=== PATIENT | female | born 1995 | race Hispanic/Latino ===

== ENCOUNTER 2018-09-26 03:49 | Observation (INO) | payer SELFPAY ==
[2018-09-26] MEDS ORDERED: ONDANSETRON 4 MG/2 ML VIAL ONE ×2 (04:17→11:16)
[2018-09-26] MEDS ORDERED: MAGNE/ALUM HYDROXD 30 ML UCUP ONE (04:17)
[2018-09-26] MEDS ORDERED: LIDOCAINE VISCOUS 2% SOLN 15 ML UDC ONE (04:17)
[2018-09-26 04:42] LABS: Absolute Lymphocytes (CBC) 2.8 K/uL (0.7-4.9); Absolute Monocytes 0.6 K/uL (0.1-1.3); Basophils % 0.3 % (0-1.3); Hematocrit 38.4 % (36.0-45.0); Lymphocytes % 36.7 % (15.3-44.8); MPV 8.3 fL (7.6-11.3); Monocytes % 8.2 % (3.3-12.3); RBC Red Blood Cell Count 4.57 M/uL (3.86-4.86)
[2018-09-26 04:52] LABS: ALT/SGPT 25 U/L (12-78); AST/SGOT 29 U/L (15-37); Albumin 3.7 g/dL (3.4-5.0); Alkaline Phosphatase 71 U/L (45-117); BUN Blood Urea Nitrogen 21 mg/dL (7-18); Bicarbonate 30 mmol/L (21-32); Bilirubin Direct 0.1 mg/dL (0-0.2); Bilirubin Total 0.2 mg/dL (0.2-1.0); Glucose Level 102 mg/dL (74-106); Lipase 126 U/L (73-393); Potassium 3.7 mmol/L (3.5-5.1); Protein, Total 7.7 g/dL (6.4-8.2); Sodium Level 141 mmol/L (136-145)
[2018-09-26 05:46] LABS: Urine Bacteria <20 /HPF (<20); Urine Culture Reflex Order NOT NEEDED; Urine RBC <5 /HPF (NONE SEEN)
[2018-09-26] MEDS ORDERED: MEPERIDINE HCL 25 MG/0.5 ML ONE (06:04)
--- NOTE | 2018-09-26 07:56 | EDPHYS ---
Physician Documentation [facility] Name: Jennifer Cadena Age: 23 yrs Sex: Female : 1995 Arrival Date: 09/26/2018 Time: 03:50 Bed 6 Private MD: ED Physician Diego Thapa HPI: 09/26 03:59 This 23 yrs old Female presents to ER via Unassigned with complaints of rn Abdominal Pain, Nausea, Chest Pain. 03:59 This 23 yrs old Female presents to ER via Unassigned with complaints of rn Abdominal Pain, Nausea. 03:59 The patient presents to the emergency department with nausea, vomiting, abdominal pain, rn of the epigastric area, described as achy, and does not radiate. Onset: The symptoms/episode began/occurred just prior to arrival. Possible causes: unknown. The symptoms are aggravated by movement, pressure, The symptoms are alleviated by nothing. Severity of symptoms: At their worst the symptoms were moderate in the emergency department the symptoms are unchanged. The patient has experienced a previous episode. 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 No diarrhea or fever. . 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 - Family history:: not pertinent. - Social history:: Smoking status: Patient/guardian denies using tobacco. - Ebola Screening: : No symptoms or risks identified at this time. - Hospitalizations: : No recent hospitalization is reported. ROS: 04:01 Constitutional: Negative for fever, chills, and weight loss, Eyes: Negative for injury, rn pain, redness, and discharge, Neck: Negative for injury, pain, and swelling, Cardiovascular: Negative for palpitations, and edema, Respiratory: Negative for shortness of breath, cough, wheezing, and pleuritic chest pain, Abdomen/GI: + abd pain/nausea/vomiting, negative for diarrhea MS/Extremity: Negative for injury and deformity, Skin: Negative for injury, rash, and discoloration, Neuro: Negative for headache, weakness, numbness, tingling, and seizure. Exam: 04:01 Constitutional: This is a well developed, well nourished patient who is awake, alert, rn appears uncomfortable Head/Face: Normocephalic, atraumatic. Eyes: Pupils equal round and reactive to light, extra-ocular motions intact. Lids and lashes normal. Conjunctiva and sclera are non-icteric and not injected. Cornea within normal limits. Periorbital areas with no swelling, redness, or edema. ENT: MMM Abdomen/GI: soft, + epigastric abd tenderness, neg bhagat, no masses Skin: Warm, dry with normal turgor. Normal color with no rashes, no lesions, and no evidence of cellulitis. MS/ Extremity: Pulses equal, no cyanosis. Neurovascular intact. Full, normal range of motion. Equal circumference. Neuro: Awake and alert, GCS 15, oriented to person, place, time, and situation. Cranial nerves II-XII grossly intact. Motor strength 5/5 in all extremities. Sensory grossly intact. Cerebellar exam normal. Normal gait. Vital Signs: 04:00 BP 125 / 76; Pulse 92; Resp 18; Temp 98.5(O); Pulse Ox 100% on R/A; Weight 67.13 kg; lp1 Height 5 ft. 4 in. (162.56 cm); Pain 10/10; 05:36 BP 116 / 70; Pulse 90; Resp 18; Pulse Ox 100% on R/A; tl2 06:29 BP 110 / 65; Pulse 66; Resp 18; Pulse Ox 97% on R/A; tl2 07:47 BP 118 / 60; Pulse 84; Resp 18; Pulse Ox 100% ; sv 09:06 BP 119 / 64; Pulse 92; Resp 16; Pulse Ox 100% ; sv 10:25 BP 112 / 47; Pulse 86; Resp 17; Pulse Ox 100% on R/A; tw2 04:00 Body Mass Index 25.40 (67.13 kg, 162.56 cm) lp1 MDM: 03:53 Patient medically screened. rn 09/26 03:58 Order name: Basic Metabolic Panel; Complete Time: 05:50 rn 09/26 03:58 Order name: CBC with Diff; Complete Time: 05:50 rn 09/26 03:58 Order name: Hepatic Function; Complete Time: 05:50 rn 09/26 03:58 Order name: Lipase; Complete Time: 05:50 rn 09/26 04:01 Order name: Urine Microscopic Only; Complete Time: 05:50 rn 09/26 09:36 Order name: Urine Dipstick--Ancillary (enter results) bd 09/26 03:58 Order name: CT Abd/Pelvis - W/Contrast rn 09/26 07:11 Order name: US Abdomen Limited rn 09/26 09:36 Order name: Urine --Ancillary (enter results) bd 09/26 10:46 Order name: Urine --Ancillary EDMS 09/26 10:46 Order name: Urine Dipstick-Ancillary EDTN 09/26 03:58 Order name: IV Saline Lock; Complete Time: 04:16 rn 09/26 03:58 Order name: Labs collected and sent; Complete Time: 04:16 rn 09/26 04:01 Order name: Urine Test (obtain specimen); Complete Time: 04:16 rn 09/26 04:01 Order name: Urine Dipstick-Ancillary (obtain specimen); Complete Time: 04:16 rn Administered Medications: 04:16 Drug: Zofran 4 mg Route: IVP; Site: right antecubital; lp1 05:37 Follow up: Response: Nausea is decreased lp1 04:27 Drug: GI Cocktail without - (Maalox Suspension 30 ml, Lidocaine Liquid 2 % 15 lp1 ml) Route: PO; 05:37 Follow up: Response: Pain is unchanged, physician notified lp1 05:57 Drug: Demerol 25 mg Route: IVP; Site: right antecubital; tl2 06:29 Follow up: Response: Pain is decreased lp1 08:58 Drug: Zosyn 3.375 grams Route: IVPB; Infused Over: 60 mins; Site: right antecubital; sv 08:58 Drug: Pepcid 20 mg Route: IVP; Site: right antecubital; sv 08:58 Drug: NS 0.9% 1000 ml Route: IV; Rate: 1 bolus; Site: right antecubital; sv 08:58 Drug: NS 0.9% 1000 ml Route: IV; Rate: 125 ml/hr; Site: right antecubital; sv Disposition: 09/26/18 07:56 Hospitalization ordered by Matt Mccollum for Observation. Preliminary diagnosis are Abdominal tenderness, Cholecystitis, Cholelithiasis. - Bed requested for Operating Room. - Status is Observation. iw - Condition is Stable. - Problem is new. - Symptoms have improved. UTI on Admission? No Signatures: Dispatcher [employer] EDVerónica Reyes, RN RN Diego Peguero MD MD cha Williams, Irene, RN RN iw Ludwig Lincoln MD MD rn Pena, Laura, RN RN lp1 Candice Matthews RN RN tl2 Corrections: (The following items were deleted from the chart) 12:01 07:56 Hospitalization Ordered by Matt Mccollum MD for Observation. Preliminary diagnosis iw is Abdominal tenderness; Cholecystitis; Cholelithiasis. Bed requested for Telemetry/MedSurg (observation). Status is Observation. Condition is Stable. Problem is new. Symptoms have improved. UTI on Admission? No. [facility] 12:01 12:01 09/26/2018 07:56 Hospitalization Ordered by Matt Mccollum MD for Observation. iw Preliminary diagnosis is Abdominal tenderness; Cholecystitis; Cholelithiasis. Bed requested for Operating Room. Status is Observation. Condition is Stable. Problem is new. Symptoms have improved. UTI on Admission? No. iw
--- NOTE | 2018-09-26 07:56 | ER ---
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 Transition of care: patient was not received from another setting of care. Onset of symptoms was September 26, 2018 at 03:30. Risk Assessment: Do you want to hurt yourself or someone else? Patient reports no desire to harm self or others. Initial Sepsis Screen: Does the patient meet any 2 criteria? No. Patient's initial sepsis screen is negative. Does the patient have a suspected source of infection? No. Patient's initial sepsis screen is negative. Care prior to arrival: None. 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 - Family history:: not pertinent. - Social history:: Smoking status: Patient/guardian denies using tobacco. - Ebola Screening: : No symptoms or risks identified at this time. - Hospitalizations: : No recent hospitalization is reported. Screenin:02 Abuse screen: Denies threats or abuse. Denies injuries from another. Nutritional lp1 screening: No deficits noted. Tuberculosis screening: No symptoms or risk factors identified. Fall Risk None identified. Assessment: 04:01 General: Appears uncomfortable, Behavior is crying. Pain: Complains of pain in lp1 epigastric area, right upper quadrant and left upper quadrant Pain currently is 10 out of 10 on a pain scale. Noted to be crying, grimacing, Also complains of nausea. Neuro: Level of Consciousness is awake, alert, obeys commands, Oriented to person, place, time, situation. Cardiovascular: Patient's skin is warm and dry. Respiratory: Respiratory effort is even, unlabored. GI: Abdomen is non-distended, Bowel sounds present X 4 quads. Abdomen is tender to palpation in epigastric area Reports nausea, vomiting. : No signs and/or symptoms were reported regarding the genitourinary system. EENT: No signs and/or symptoms were reported regarding the EENT system. Derm: Skin is pink, warm \T\ dry. Musculoskeletal: Circulation, motion, and sensation intact. 04:50 Reassessment: CT notified of patient completing oral contrast at this time. lp1 05:30 Reassessment: Patient states continued epigastric pain; Provider notified. lp1 06:47 Reassessment: Patient returned from CT. lp1 08:10 Reassessment: Patient appears in no apparent distress at this time. No changes from tw2 previously documented assessment. Patient and/or family updated on plan of care and expected duration. Pain level reassessed. Patient is alert, oriented x 3, equal unlabored respirations, skin warm/dry/pink. 09:10 Reassessment: Patient appears in no apparent distress at this time. No changes from tw2 previously documented assessment. Patient and/or family updated on plan of care and expected duration. Pain level reassessed. Patient is alert, oriented x 3, equal unlabored respirations, skin warm/dry/pink. 10:25 Reassessment: Patient appears in no apparent distress at this time. No changes from tw2 previously documented assessment. Patient and/or family updated on plan of care and expected duration. Pain level reassessed. Patient is alert, oriented x 3, equal unlabored respirations, skin warm/dry/pink. Vital Signs: 04:00 BP 125 / 76; Pulse 92; Resp 18; Temp 98.5(O); Pulse Ox 100% on R/A; Weight 67.13 kg; lp1 Height 5 ft. 4 in. (162.56 cm); Pain 10/10; 05:36 BP 116 / 70; Pulse 90; Resp 18; Pulse Ox 100% on R/A; tl2 06:29 BP 110 / 65; Pulse 66; Resp 18; Pulse Ox 97% on R/A; tl2 07:47 BP 118 / 60; Pulse 84; Resp 18; Pulse Ox 100% ; sv 09:06 BP 119 / 64; Pulse 92; Resp 16; Pulse Ox 100% ; sv 10:25 BP 112 / 47; Pulse 86; Resp 17; Pulse Ox 100% on R/A; tw2 04:00 Body Mass Index 25.40 (67.13 kg, 162.56 cm) lp1 ED Course: 03:50 Patient arrived in ED. do 03:53 Ludwig Lincoln MD is Attending Physician. rn 04:00 Triage completed. lp1 04:01 Arm band placed on left wrist. lp1 04:03 Mayela Soto, RN is Primary Nurse. lp1 04:03 Patient has correct armband on for positive identification. Placed in gown. Pulse ox lp1 on. NIBP on. 04:10 Inserted saline lock: 20 gauge in right antecubital area, using aseptic technique. lp1 Blood collected. 06:[address] via wheelchair. lp1 06:42 CT completed. Patient tolerated procedure well. Patient moved back from CT. nj 06:54 CT Abd/Pelvis - W/Contrast In Process Unspecified. EDMS 07:09 Primary Nurse role handed off by Mayela Soto RN tw2 07:09 Rosi Tinajero, JUAREZ is Primary Nurse. tw2 07:42 US Abdomen Limited In Process Unspecified. EDMS 07:44 Ultrasound completed. Patient tolerated well. aa4 07:47 Attending Physician role handed off by Ludwig Lincoln MD renee 07:47 Diego Thapa MD is Attending Physician. renee 07:51 Matt Mccollum MD is Hospitalizing Provider. renee 09:05 Primary Nurse role handed off by Rosi Tinajero RN sv 09:05 Verónica Lujan RN is Primary Nurse. sv 12:00 No provider procedures requiring assistance completed. Patient admitted, IV remains in sv place. intact. Administered Medications: 04:16 Drug: Zofran 4 mg Route: IVP; Site: right antecubital; lp1 05:37 Follow up: Response: Nausea is decreased lp1 04:27 Drug: GI Cocktail without - (Maalox Suspension 30 ml, Lidocaine Liquid 2 % 15 lp1 ml) Route: PO; 05:37 Follow up: Response: Pain is unchanged, physician notified lp1 05:57 Drug: Demerol 25 mg Route: IVP; Site: right antecubital; tl2 06:29 Follow up: Response: Pain is decreased lp1 08:58 Drug: Zosyn 3.375 grams Route: IVPB; Infused Over: 60 mins; Site: right antecubital; sv 08:58 Drug: Pepcid 20 mg Route: IVP; Site: right antecubital; sv 08:58 Drug: NS 0.9% 1000 ml Route: IV; Rate: 1 bolus; Site: right antecubital; sv 08:58 Drug: NS 0.9% 1000 ml Route: IV; Rate: 125 ml/hr; Site: right antecubital; sv Outcome: 07:56 Decision to Hospitalize by Provider. renee 12:00 Admitted to OR accompanied by nurse, via wheelchair, with chart. sv 12:00 Condition: stable 12:00 Instructed on the need for admit. 12:01 Patient left the ED. iw Signatures: Dispatcher [employer] Verónica Swanson RN RN Diego Peguero MD MD cha Williams, Irene RN RN Sole Kebede Roman, MD MD rn Pena, Laura, RN RN lp1 Renetta Parekh Tara, RN RN tw2 Candice Matthews RN RN tl2 Octavio Skinner
--- NOTE | 2018-09-26 08:22 | RAD REPORT ---
EXAM DESCRIPTION: US - Abdomen Exam Limited - 09/26/2018 7:42 am CLINICAL HISTORY: ABD PAIN COMPARISON: No comparisons FINDINGS: The gallbladder demonstrates a prominent shadowing gallstone. No pericholecystic fluid or gallbladder wall thickening. The common bile duct is normal measuring 4 mm. The liver demonstrates no findings of intrahepatic biliary dilatation. IMPRESSION: Cholelithiasis.
--- NOTE | 2018-09-26 08:26 | RAD REPORT ---
EXAM DESCRIPTION: CTAbdomen Pelvis W Contrast - 09/26/2018 6:54 am CLINICAL HISTORY: Abdominal pain. ABD PAIN COMPARISON: No comparisons TECHNIQUE: Biphasic CT imaging of the abdomen and pelvis was performed with 100 ml non-ionic IV cont rast. All CT scans are performed using dose optimization technique as appropriate and may include automated exposure control or mA/KV adjustment according to patient size. FINDINGS: The lung bases are clear.Cholelithiasis. The liver demonstrates mild periportal edema, nonspecific. The spleen, pancreas, adrenal glands and k idneys are within normal limits. Tiny radiodensity is seen in the region the distal common bile duct which could be a tiny stone. No bowel obstruction, free air, free fluid or abscess. Small fat containing umbilical hernia. The aneesh endix is not identified as a discrete structure, however, no secondary findings of appendicitis are i dentified. No evidence of significant lymphadenopathy. No suspicious bony findings. IMPRESSION: Cholelithiasis. Punctate radiodensity in the region of the distal common bile duct may r epresent choledocholithiasis.
[2018-09-26] MEDS ORDERED: NA CHLORIDE 0.9% 2,000 ML ONE (08:56)
[2018-09-26] MEDS ORDERED: FAMOTIDINE 20 MG/2 ML VIAL IV ONE (08:56)
[2018-09-26] MEDS ORDERED: PIPER/TAZO/NS 3.375gm 3.375 GM/100 ML BAG ONE (08:57)
[2018-09-26 10:46] LABS: Urine Blood NEGATIVE (NEG); Urine Glucose NEGATIVE (NEG); Urine Protein 1+ (NEG); Urine Specific Gravity 1.025 (1.005-1.030); Urine pH 7.5 (5.0-7.0)
[2018-09-26] MEDS ORDERED: ACETAMINOPHEN 500 MG TAB PO PRN (11:10)
[2018-09-26] MEDS ORDERED: ONDANSETRON 4 MG/2 ML VIAL IV PRN ×2 (11:10→12:47)
[2018-09-26] MEDS ORDERED: MORPHINE 4 MG/ML SYR IV PRN (11:10)
[2018-09-26] MEDS ORDERED: BUPIVACAINE 0.5% PF 10 ML VIAL ONE (11:11)
[2018-09-26] MEDS ORDERED: LIDOCAINE 2% MPF 5 ML VIAL ONE (11:14)
[2018-09-26] MEDS ORDERED: FENTANYL CITR 100 MCG/2 ML ONE ×2 (11:14→12:18)
[2018-09-26] MEDS ORDERED: MIDAZOLAM HCL 2 MG/2 ML INJ ONE (11:14)
[2018-09-26] MEDS ORDERED: PROPOFOL 200 MG/20 ML VIAL IV ONE (11:14)
[2018-09-26] MEDS ORDERED: GLYCOPYRROLATE 0.2 MG/ML SYR ONE (11:14)
[2018-09-26] MEDS ORDERED: ROCURONIUM 50 MG/5 ML VIAL IV ONE (11:15)
[2018-09-26] MEDS ORDERED: NEOSTIGMINE 1 MG/ML -10 ML VIAL ONE (11:16)
--- NOTE | 2018-09-26 12:30 | P.OP ---
Supervisor Brine: Dayanara HINOJOSA Preoperative diagnosis: Acute Cholecystitis and Choleelithiasis Postoperative diagnosis: same Primary procedure: Lap Iemlda Anesthesia: General Estimated blood loss: min Specimen: gb Findings: as above Complications: None Transferred to: Recovery Room Condition: Good
[2018-09-26] MEDS ORDERED: HYDROMORPHONE HCL 1 MG/ML INJ IV PRN (12:47)
[2018-09-26] MEDS ORDERED: HYDROCODONE/APAP 7.5/325 MG TAB PO PRN (12:47)
[2018-09-26] MEDS ORDERED: PROMETHAZINE 25 MG/ML VIAL ONE (13:26)
[2018-09-26] MEDS ORDERED: MEPERIDINE HCL 50 MG/ML AMP ONE (13:26)
[2018-09-26] MEDS: PIPER/TAZO/NS 3.375gm 3.375 GM/100 ML BAG IVPB SCH (16:35)
[2018-09-26] MEDS: NA CHLORIDE 0.9% 1,000 ML IV SCH ×2 (16:35→19:10)
--- NOTE | 2018-09-26 16:46 | PREOPHP ---
Date of Admission: 09/26/2018 Chief Complaint: Abdominal pain. History Of Present Illness: The patient is a 23-year-old female comes in with acute onset of epigast sherrell right upper quadrant pain associated with nausea, vomiting, bloating, belching, and heartburn, po stprandial in nature. Has a similar episode in the past. No diarrhea or constipation. No blood in her stool. No dysuria or hematuria. No sore throat, runny nose, cough, headaches, or dizziness. No chest pain. No fever or chills. Review of Systems: Otherwise unremarkable. Past Medical History: Negative. Past Surgical History: Three C sections. Allergies: NO ALLERGIES. Social History: Denies smoking or drinking. Family History: Negative. Physical Examination: Vital Signs: Stable. She is afebrile. General: She is awake, alert, and oriented x3. Head and neck: There is no evidence of icterus. Cranial nerves 2 through 12 are grossly within norm al limits. No neck masses. No JVD. Throat clear. Neck is supple. Chest: Clear. Heart: S1 and S2. Abdomen: Soft, nondistended. Tenderness in the right upper quadrant epigastrium. No rebound, rigid ity or guarding. Extremities: Adequately perfused. Nontender. Neuro: Nonfocal. Laboratory Data: White count is normal. LFTs, amylase are normal. Lipase is normal. Ultrasound of gallbladder, CT shows cholelithiasis. Assessment: 1.Acute cholecystitis. 2.Cholelithiasis. Plan: Admit, n.p.o., IV fluid, IV antibiotic. To the OR for lap choly, possible open. The patient understands the risks, benefits, and alternatives and agrees to procedure. GAUTAM/MODL Voice ID: [id number]
[2018-09-26 17:59] VITALS: BMI 25.4
[2018-09-26] MEDS: FAMOTIDINE 20 MG/2 ML VIAL IV SCH (20:24)
--- NOTE | 2018-09-26 23:04 | OP ---
Date of Procedure: 09/26/2018 Surgeon: Matt Mccollum MD Product Development Consultant: ASHISH Mohan. Preoperative Diagnoses: Acute cholecystitis and cholelithiasis. Postoperative Diagnoses: Acute cholecystitis and cholelithiasis. Procedure: Laparoscopic cholecystectomy. Estimated Blood Loss: Minimal. Specimen: Gallbladder. Findings: As above. Anesthesia: General. Complications: None. Disposition: The patient tolerated the procedure in stable condition and taken to Recovery in good g eneral condition. Procedure In Detail: The patient was brought to the OR and placed in supine position. General anest hesia was begun. The patient was prepped and draped in usual sterile fashion. Marcaine 0.5% was inf iltrated locally. A 15-blade was used to make a 1 cm supraumbilical midline incision. Subcutaneous tissues were divided. The fascia was identified and divided. A #1 Vicryl stay suture was placed. P eritoneal cavity was entered with blunt dissection. 12 mm trocar was placed into the peritoneal cavi ty under direct vision. Pneumoperitoneum was established and three 5 mm trocars were placed, one in the epigastrium just to the right of midline and two in the right subcostal region. Laparoscopy reve aled evidence of acute inflammation of the gallbladder. Fundus retracted superiorly. Infundibulum w as identified and retracted inferolaterally. The cystic duct and cystic artery were clearly identifi ed with blunt dissection. Clips placed. Rotator divided. Cautery used to remove the gallbladder fr om the liver bed. Bleeding on the liver bed controlled with cautery. The gallbladder was retrieved through the umbilicus via an EndoCatch bag. Right upper quadrant was irrigated. Effluent was clear. No evidence of bleeding or bile leakage appreciated. Subsequently, all trocars were removed under direct vision. Stay sutures were tied to each other to approximate the fascial defect. Subcutaneous wounds were irrigated. Bleeding controlled with cautery. 3-0 chromic used for subcutaneous tissues and mei were used to close the skin. Sterile dressing was applied. The patient was awakened an d taken to Recovery in good general condition. /MODL Voice ID: [id number] Report ID: [id number]
[2018-09-27] MEDS: PIPER/TAZO/NS 3.375gm 3.375 GM/100 ML BAG IVPB SCH ×2 (00:22→09:55)
[2018-09-27] MEDS: NA CHLORIDE 0.9% 1,000 ML IV SCH ×2 (03:10→11:24)
[2018-09-27 03:42] VITALS: O2SAT 97
[2018-09-27 05:31] LABS: Absolute Lymphocytes (CBC) 1.3 K/uL (0.7-4.9); Absolute Monocytes 0.5 K/uL (0.1-1.3); Absolute Neutrophil 3.6 K/uL (1.8-8.0); Basophils % 0.4 % (0-1.3); Eosinophils % 2.8 % (0-4.4); Hematocrit 36.2 % (36.0-45.0); Lymphocytes % 22.9 % (15.3-44.8); MPV 8.2 fL (7.6-11.3); Monocytes % 8.8 % (3.3-12.3); RBC Red Blood Cell Count 4.26 M/uL (3.86-4.86)
[2018-09-27 06:02] LABS: Albumin 3.1 g/dL (3.4-5.0); Alkaline Phosphatase 101 U/L (45-117); BUN Blood Urea Nitrogen 8 mg/dL (7-18); Bicarbonate 28 mmol/L (21-32); Bilirubin Direct 0.4 mg/dL (0-0.2); Bilirubin Total 1.2 mg/dL (0.2-1.0); Glucose Level 92 mg/dL (74-106); Lipase 248 U/L (73-393); Potassium 3.7 mmol/L (3.5-5.1); Protein, Total 6.7 g/dL (6.4-8.2); Sodium Level 140 mmol/L (136-145)
[2018-09-27 06:10] LABS: ALT/SGPT 1302 U/L (12-78); AST/SGOT 970 U/L (15-37)
[2018-09-27] MEDS: FAMOTIDINE 20 MG/2 ML VIAL IV SCH (09:55)
--- NOTE | 2018-09-27 10:55 | RAD REPORT ---
EXAM DESCRIPTION: MRI - Cholangiogram - 09/27/2018 10:42 am CLINICAL HISTORY: Elevated LIVer enzymes Abdominal pain COMPARISON: Abdomen Exam Limited dated 09/26/2018; Abdomen Pelvis W Contrast dated 09/26/2018 FINDINGS: Three-dimensional MRCP was performed using maximum intensity projection reconstruction on the same work station. No intrahepatic biliary tree dilatation is seen. The common bile duct is normal caliber without evide nce of retained stone, stricture or mass. The pancreatic duct is not pathologically dilated. Recent cholecystectomy changes seen. Limited T2 sequences through the abdomen demonstrates no bulky adenopathy, significant free fluid or abscess. IMPRESSION: No pathologic biliary tree finding identified.
[2018-09-27 13:41] VITALS: BP 109/57; TEMP 98.3
--- NOTE | 2018-09-28 10:18 | DS ---
Date of Discharge: 09/27/2018 Admitting Diagnosis: Acute cholecystitis and cholelithiasis. Discharge Diagnoses: Acute cholecystitis and cholelithiasis, elevated liver function tests. Procedure Performed: Laparoscopic cholecystectomy. Hospital Course: The patient is a 23-year-old female who underwent a laparoscopic cholecystectomy fo r acute cholecystitis and cholelithiasis yesterday. Postoperatively, she had some LFTs that were danny vated. AST and ALT were around 1000. An MRCP was done which showed no evidence of retained stone or significant fluid in the abdomen. So, the elevation is probably secondary to surgical stress. The patient is asymptomatic and is tolerating diet. No pain ambulating. Afebrile. Therefore, the patie nt will be discharged to home. Disposition: Home. Condition: Stable. Discharge Instructions: Resume home medications and diet. Activity as tolerated. No heavy lifting. Remove outer dressing in a.m. Shower. Keep wound clean and dry. Follow up in my office in a week . Call for an appointment. Tylenol No. 3 one tablet p.o. q.4 p.r.n. pain. /MODL Voice ID: [id number] Report ID: [id number]
== END 2018-09-27 14:20 | disposition home or self-care (01) ==
LOC: ER 03:49 → ERHOLD 08:03 → 2ND 13:02
PROVIDERS: ADMIT Surgery; ATTEND Surgery
PROC: 0FT44ZZ Resection of Gallbladder, Percutaneous Endoscopic Approach (ICD-10-PCS; principal; 2018-09-26 12:00)
DX: K80.00 Calculus of gallbladder with acute cholecystitis without obstruction (principal)
CPT/HCPCS: 36415; 74177; 74181; 76705; 80048; 80076; 81003; 81015; 81025; 83690; 85025; 88304; 96374; 96375; 99285; G0378; J1170; J2175; J2250; J2405; J2543; J2550; J2704; J2710; J3010; J7030; Q9967